=== PATIENT | female | born 1950 | race Caucasian/White ===

== ENCOUNTER 2017-05-03 09:19 | Day surgery (SDC) | payer MEDICARE, BC ==
[2017-05-03] MEDS ORDERED: Midazolam 1 MG/ML 2 ML SDV IV ONE (09:20)
[2017-05-03] MEDS ORDERED: Dexamethasone 4 MG/ML SDV IV ONE (09:20)
[2017-05-03] MEDS ORDERED: Sodium Chloride 0.9% 10 ML Syringe IV ONE (09:20)
[2017-05-03] MEDS ORDERED: Ondansetron 4 MG/2 ML SDV IVPUSH PRN (11:00)
[2017-05-03] MEDS ORDERED: Sodium Chloride 0.9% 10 ML Syringe FLUSH PRN (11:00)
[2017-05-03] MEDS ORDERED: Phenylephrine 10% Ophth Soln 5 ML Bot EYELF ONE (11:00)
[2017-05-03] MEDS ORDERED: Moxifloxacin 0.5% Ophth Soln 3 ML Bottle EYELF ONE (11:00)
[2017-05-03] MEDS ORDERED: Cataract Ophth Solution EYELF ONE (11:00)
[2017-05-03] MEDS ORDERED: Timolol Maleate 0.5% Ophth Soln 5 ML Bottle EYELF ONE (11:00)
[2017-05-03] MEDS ORDERED: Povidone-Iodine 5% Sterile Ophth Soln 30 ML Bottle EYELF ONE ×2 (11:00→11:47)
[2017-05-03] MEDS ORDERED: Phenylephrine 10% Ophth Soln 5 ML Bot EYELF PRN (11:00)
[2017-05-03] MEDS ORDERED: Acetaminophen 325 MG Tab PO PRN (11:00)
[2017-05-03] MEDS ORDERED: Proparacaine 0.5% Ophth Soln 15 ML Bottle EYELF ONE (11:00)
[2017-05-03] MEDS ORDERED: Lidocaine 1% 30 ML SDV ONE (11:46)
[2017-05-03] MEDS ORDERED: Tetracaine HCl/PF 0.5% 4 ML Bottle EYELF ONE (11:47)
[2017-05-03] MEDS ORDERED: Diclofenac Sodium 0.1% Ophth Soln 5 ML Bottle EYELF ONE (11:47)
[2017-05-03] MEDS ORDERED: Apraclonidine 0.5% Ophth Soln 5 ML Bot EYELF ONE (11:47)
[2017-05-03] MEDS ORDERED: Balanced Salt Solution Ophth Irrig 500 ML Bottle IOCULAR ONE (11:48)
[2017-05-03] MEDS ORDERED: Chondroitin Sulfate/Hyaluronate Sodium Ophth Inj 0.75 ML Syringe EYELF ONE (11:48)
[2017-05-03] MEDS ORDERED: Dexamethasone/Neomycin/Polymyxin B Ophth Oint 3.5 GM Tube EYELF ONE (11:48)
[2017-05-03] MEDS ORDERED: Vancomycin 500 MG SDV EYELF ONE (11:48)
[2017-05-03 12:46] VITALS: BP 142/73
--- NOTE | 2017-05-03 13:26 | OR ---
DATE: 05/03/2017 PREOPERATIVE DIAGNOSIS: Cataract, left eye. POSTOPERATIVE DIAGNOSIS: Cataract, left eye. PROCEDURE: Extracapsular cataract extraction with intraocular lens implant, left eye. ANESTHESIA: Topical/local MAC. COMPLICATIONS: None. INDICATION: Mrs. Valdez was seen in the clinic. She has complained of difficulty reading, difficulty driving, difficulty seeing at night. Examination reveals visually significant cataract with best spectacle corrected vision of count fingers. Cataract is mixed nuclear, cortical, and posterior subcapsular. I explained options, offered cataract surgery, and I explained risks preoperatively including, but not limited to, infection, retinal detachment, loss of vision, need for additional surgery, and risks associated with anesthesia. We discussed implant options. She has requested a monofocal implant. She understands that she will likely need glasses following surgery for some activities. OPERATIVE DESCRIPTION: After informed consent was obtained and the risks, benefits, and alternatives were explained, the patient was brought to the operative suite and topical anesthesia was administered. The patient was then prepped and draped in the sterile fashion and attention was placed on the left eye. A sterile lid speculum was placed into the left eye to allow operative exposure. A full-thickness paracentesis was made in the temporal portion of the operative eye. Preservative-free lidocaine 0.1 mL was injected into the anterior chamber followed by viscoelastic. A full-thickness corneal incision was then made into the anterior chamber. A bent needle cystotome was used to create a small claire in the anterior capsule. The capsulorrhexis forceps were then used to create a 360-degree curvilinear capsulorrhexis. The nucleus was then removed using a phacoemulsification handpiece and the remaining cortical material was then removed with irrigation and aspiration handpiece. Following removal of the cortical material, the capsular bag was then inspected and noted to be free of any holes or tears. Viscoelastic was then injected into the capsular bag and the intraocular lens was inserted into the capsular bag. The viscoelastic material was then removed from both the anterior and posterior chambers and from behind the IOL. The lens and capsular bag were then reinspected. The IOL was well centered and the capsular bag intact. The wound and paracentesis sites were inspected and hydrated with balanced saline solution. Both were found to be self- sealing. The intraocular pressure was assessed digitally and found to be within normal range. A good red reflex was noted at the completion of the procedure. No complications occurred during the operation. At the completion of the procedure, Maxitrol, Voltaren, and Iopidine drops were placed into the operative eye. A sterile eye shield was placed over the operative eye and the patient was transported to the postoperative recovery area having tolerated the procedure well. Postoperative instructions were given along with a postoperative appointment. The patient was advised to call with any questions or concerns. [facility] /[id number]
== END 2017-05-03 12:50 | disposition home or self-care (01) ==
LOC: DL.SDS 09:19
PROVIDERS: ATTEND Ophthalmology
DX: H25.12 Age-related nuclear cataract, left eye (principal); H25.012 Cortical age-related cataract, left eye; H25.042 Posterior subcapsular polar age-related cataract, left eye; E11.9 Type 2 diabetes mellitus without complications; E78.5 Hyperlipidemia, unspecified; I10 Essential (primary) hypertension; E03.9 Hypothyroidism, unspecified; Z87.891 Personal history of nicotine dependence; Z79.82 Long term (current) use of aspirin; Z79.899 Other long term (current) drug therapy; Z88.8 Allergy status to other drugs, medicaments and biological substances; Z91.040 Latex allergy status; Z91.09 Other allergy status, other than to drugs and biological substances
CPT/HCPCS: 00142; 66984; A9270; C1780; J1100; J2250; J3370; J7050

== ENCOUNTER 2022-05-25 06:33 | Day surgery (SDC) | payer MEDICARE, BC ==
[~2022-05-25 06:33] MED LIST: Dextrose 5%-0.45% NaCl 1,000 ML IV SCH; Midazolam 1 MG/ML 2 ML SDV ONE; Sodium Chloride 0.9% 10 ML Syringe FLUSH PRN; Sodium Chloride 0.9% 10 ML Syringe FLUSH SCH; fentaNYL 100 MCG/2 ML SDV ONE
[2022-05-25] MEDS ORDERED: fentaNYL 100 MCG/2 ML SDV IV ONE ×6 (06:34→08:33)
[2022-05-25] MEDS ORDERED: Midazolam 1 MG/ML 2 ML SDV IV ONE ×7 (06:34→08:04)
[2022-05-25 13:41] VITALS: BP 149/75; PULSE 94
== END 2022-05-25 10:35 | disposition home or self-care (01) ==
LOC: DL.ENDO 06:33
PROVIDERS: ATTEND Internal Medicine Gastroenterology
DX: D12.2 Benign neoplasm of ascending colon (principal); D50.0 Iron deficiency anemia secondary to blood loss (chronic); E66.09 Other obesity due to excess calories; E78.5 Hyperlipidemia, unspecified; E11.9 Type 2 diabetes mellitus without complications; I10 Essential (primary) hypertension; E03.9 Hypothyroidism, unspecified; G47.00 Insomnia, unspecified; Z98.890 Other specified postprocedural states; Z90.49 Acquired absence of other specified parts of digestive tract; M19.90 Unspecified osteoarthritis, unspecified site; Z68.30 Body mass index [BMI] 30.0-30.9, adult; Z90.710 Acquired absence of both cervix and uterus; Z91.040 Latex allergy status; Z88.6 Allergy status to analgesic agent; Z88.8 Allergy status to other drugs, medicaments and biological substances; Z91.041 Radiographic dye allergy status
CPT/HCPCS: 45385; 88305; J2250; J3010; J7042